=== PATIENT | male | born 1950 | race Caucasian/White ===

== ENCOUNTER 2022-05-07 18:03 | Emergency (ER) | payer MEDICARE, OTHER ==
[2022-05-07] MEDS ORDERED: Ondansetron 4 MG Tab.DIS PO ONE (18:52)
[2022-05-07 19:51] LABS: ESTIMATED GFR 92 mL/min (>60)
[2022-05-07] MEDS ORDERED: cefTRIAXone 1 GM Vial IM ONE (20:12)
[2022-05-07 20:48] LABS: CORONAVIRUS COVID-19 NAA NEGATIVE (NEGATIVE)
== END 2022-05-07 20:40 | disposition home or self-care (01) ==
LOC: FB.ED 18:03
DX: H65.92 Unspecified nonsuppurative otitis media, left ear (principal); Z85.818 Personal history of malignant neoplasm of other sites of lip, oral cavity, and pharynx; Z92.3 Personal history of irradiation; Z20.822 Contact with and (suspected) exposure to COVID-19
CPT/HCPCS: 0240U; 36415; 80053; 83605; 85025; 86140; 87040; 96372; 99283; J0696; Q0162

== ENCOUNTER 2022-05-13 15:36 | Emergency (ER) | payer MEDICARE, OTHER | END 2022-05-13 16:30 | disposition home or self-care (01) | LOC: FB.ED 15:36 | DX: Z85.818 Personal history of malignant neoplasm of other sites of lip, oral cavity, and pharynx (principal); Z92.3 Personal history of irradiation | CPT/HCPCS: 99283 ==

== ENCOUNTER 2023-06-11 21:46 | Emergency (ER) | payer MEDICARE, OTHER ==
[2023-06-11] MEDS ORDERED: Amoxicillin/Clavulanate K 875-125 MG Tab PO ONE (22:27)
[2023-06-11] MEDS ORDERED: predniSONE 20 MG Tab PO ONE (22:27)
== END 2023-06-11 22:50 | disposition home or self-care (01) ==
LOC: FB.ED 21:46
DX: H66.92 Otitis media, unspecified, left ear (principal); J06.9 Acute upper respiratory infection, unspecified
CPT/HCPCS: 99283; A9270-GY; J7512